=== PATIENT | female | born 1980 | race Caucasian/White ===

== ENCOUNTER 2024-07-24 12:01 | Outpatient (CLI) | payer OTHER, SELFPAY ==
--- OUTSIDE RECORDS SUMMARY | 2024-07-24 12:06 | XMS_ITS | Clinical Summary ---
Author Organization [facility] Address [address] [place] [address] Care Team Providers Care Soot Blower Name Role Phone Mihir Maryellen Robyn BE Primary Care Provider + Allergies No known active allergies Medications vitamin [id number] acid 0.5-1 mg tablet Take 1 tablet by mouth daily 90 tablet 3 06/18/2022 Active cholecalciferol (VITAMIN D-3) 2000 unit capsule 1 capsule (2,000 Units total) Active busPIRone (BUSPAR) 10 mg tabletIndicatio ns:Generalized Anxiety Disorder Take 1 tablet (10 mg total) by mouth 2 (two) times a day 60 tablet 11 08/05/2023 08/04/19 25 Active topiramate (TOPAMAX) 50 mg tablet Take 1 tablet (50 mg total) by mouth 2 (two) times a day 180 tablet 4 08/14/2023 08/14/19 25 Active lisdexamfetamin e (VYVANSE) 30 mg capsule Take 1 capsule (30 mg total) by mouth every morning 30 capsule 08/14/2023 Active SUMAtriptan (IMITREX) 100 mg tablet Take 1 tablet (100 mg total) by mouth once as needed for migraine for up to 1 dose 9 tablet 11/26/2023 Active Active Problems Problem Noted Date Diagnosed Date Vitamin D deficiency 04/22/2023 Assessment & Plan (07/30/2023 2:53 PM DEVELOPER PROVER UPHOLSTERING): Repeat vit d Assessment & Plan (04/22/2023 2:23 PM DEVELOPER PROVER UPHOLSTERING): Vit d deficiency noted Repeat vit d labs Vitamin B12 deficiency 04/22/2023 Assessment & Plan (07/30/2023 2:53 PM DEVELOPER PROVER UPHOLSTERING): Repeat vit b12 Assessment & Plan (04/22/2023 2:23 PM DEVELOPER PROVER UPHOLSTERING): Repeat vit b12 labs Class 2 obesity due to exces s calories without serious comorbidity with body mass index (BMI) of 35.0 to 35.9 in adult 04/22/2023 Assessment & Plan (07/30/2023 2:53 PM DEVELOPER PROVER UPHOLSTERING): BMI Follow-up includes: nutrition counseling. Assessment & Plan (04/22/2023 2:23 PM DEVELOPER PROVER UPHOLSTERING): BMI Follow-up includes: nutrition counseling. Nutritional counseling 08/15/2022 Assessment & Plan (04/22/2023 2:23 PM DEVELOPER PROVER UPHOLSTERING): Continue adipex Assessment & Plan (12/18/2022 6:11 PM CDT): Nutritional counseling performed. Continue on Adipex and started on Topamax and instructed on side effects related to the medication. Follow-up in 1 month Assessment & Plan (08/15/2022 4:15 PM DEVELOPER PROVER UPHOLSTERING): Nutrition counseling performed. Continue Adipex. Doing very well with medication and denies side effects related to the medication. Will continue Adipex for at least 4 months and will follow up in 4 months with weights Anxiety 06/13/2022 Assessment & Plan (07/30/2023 2:53 PM DEVELOPER PROVER UPHOLSTERING): Improvement noted with buspar Assessment & Plan (04/22/2023 2:23 PM DEVELOPER PROVER UPHOLSTERING): Improvement with buspar; continue buspar Assessment & Plan (07/18/2022 10:48 AM DEVELOPER PROVER UPHOLSTERING): Continue buspar Assessment & Plan (06/13/2022 3:16 PM DEVELOPER PROVER UPHOLSTERING): Started on BuSpar and instructed on side effects related to the medication, continue BuSpar 3 times a day and will follow up in 1 month Moderate episode of recurrent major depressive d isorder 06/13/2022 Assessment & Plan (07/18/2022 10:49 AM DEVELOPER PROVER UPHOLSTERING): Started adipex for weight control; instructed on SIDE EFFECT of medication. BMI Follow-up includes: nutrition counseling. Assessment & Plan (06/13/2022 3:16 PM DEVELOPER PROVER UPHOLSTERING): Started on Effexor and instructed on side effects related to the medication Migraine 04/27/2022 Assessment & Plan (07/30/2023 2:53 PM DEVELOPER PROVER UPHOLSTERING): Continue topamax and imitrex prn Assessment & Plan (12/18/2022 6:11 PM CDT): Started topamax which may also aid with migraines Started initially for use with Adipex to aid with weight loss but it also may aid with migraine prevention. Patient currently is having migraines about 1-2 a month. Assessment & Plan (07/18/2022 10:48 AM DEVELOPER PROVER UPHOLSTERING): Continue imitrex prn Assessment & Plan (06/13/2022 3:15 PM DEVELOPER PROVER UPHOLSTERING): Continue imitrex prn Resolved Problems Problem Noted Date Diagnosed Date Resolved Date Class 2 drug-induced obesity without serious comorbidity with body mass index (BMI) of 38.0 to 38.9 in adult 12/18/2022 04/19/2023 Assessment & Plan (12/18/2022 6:11 PM CDT): BMI Follow-up includes: nutrition counseling. Tongue discoloration 06/13/2022 023 Assessment & Plan (06/13/2022 3:16 PM DEVELOPER PROVER UPHOLSTERING): B12 ordered Morbid obesity with BMI of 40.0-44.9, adult 04/27/2022 12/18/2022 Assessment & Plan (08/15/2022 4:14 PM DEVELOPER PROVER UPHOLSTERING): BMI Follow-up includes: nutrition counseling. Assessment & Plan (06/13/2022 3:16 PM DEVELOPER PROVER UPHOLSTERING): BMI Follow-up includes: nutrition counseling. Abnormal uterine bleeding (AUB) 10/03/2021 09/19/2022 IUD check up 10/03/2021 12/05/2021 Immunizations Name Administration Dates Next Due Influenza, Quadrivalent, Laisha l Culture-based MDCK, Preservative Free, Antibiotic Free, Intramuscular 04/18/2019 Influenza, Unspecified 03/13/2023,2021,03/10/2021,03/10 Emmy (J&J) SARS-CoV-2 Vaccination 05/03/2021, 09/24/2020,08/27/2020 Surgical History Surgery Date Site/Laterality Comments BUNIONECTOMY NASAL SINUS SURGERY HYSTERECTOMY Medical History Medical History Date Comments Migraine with aura Depression 06/1997 Menstrual problem 06/1996 - severe pain/nausea Anxiety Family History Medical History Relation Name Comments Ovarian cancer Father's Sister 1 Cancer Father's Sister 2 Natalia Cancer Maternal Grandmother Juliet Depression Maternal Grandmother Juliet Diabetes Maternal Grandmother Juliet Uterine cancer Maternal Grandmother Juliet Breast cancer Mother Brenda Cancer Mother Brenda Heart disease Mother Brenda Miscarriages / Stillbirths Mother Brenda Alcohol abuse Paternal Grandfather Marliss Cancer Paternal Grandfather Marliss Cancer Paternal Grandmother Zaria Miscarriages / Stillbirths Sister Summer Colon cancer Neg Hx Deep vein thrombosis Neg Hx Thrombophilia Neg Hx Relation Name Status Comments Father's Sister 1 Father's Sister 2 Natalia Maternal Grandmother Juliet Mother Brenda Paternal Grandfather Marliss Paternal Grandmother Zaria Sister Summer Social History Tobacco Use Types Packs/Day Years Used Date Smoking Tobacco: Never Smokeless Tobacco: Never Tobacco Cessation:Counseling Given: Not Answered Alcohol Use Standard Drinks/Week Comments Yes 0 (1 standard drink = 0.6 oz pur e alcohol) AUDIT-C Answer Date Recorded Q1: How often do you have a drink containing alc ohol? 2-3 times a week 07/30/2023 Q2: How many drinks containi ng alcohol do you have on a typical day when you are drinking? 1 or 2 07/30/2023 Q3: How often do you have si x or more drinks on one occasion? Never 07/30/2023 PHQ-2 Answer Date Recorded PHQ-2 Total Score (If total score is 3 or more points, staff should administer the PHQ-9) 0 07/30/2023 Comments No Sex and Gender Information Value Date Recorded Sex Assigned at Not on file Legal Sex Female 10:35 AM DEVELOPER PROVER UPHOLSTERING Gender Identity Female 05/14/2020 9:26 AM DEVELOPER PROVER UPHOLSTERING Sexual Orientation Straight 05/14/2020 9: 26 AM DEVELOPER PROVER UPHOLSTERING Obstetrics History Para Term AB IAB SAB Ectopic Multiple Livin g Live Births 0 0 0 0 0 0 0 0 0 0 0 Last Filed Vital Signs Vital Sign Reading Time Taken Comments Blood Pressure 115/88 07/30/2023 9:23 AM DEVELOPER PROVER UPHOLSTERING Pulse 81 07/30/2023 9:23 AM DEVELOPER PROVER UPHOLSTERING Temperature 37.4 C (99.3 F) 05/08/2022 9:00 AM DEVELOPER PROVER UPHOLSTERING Respiratory Rate 16 07/16/2022 1:07 PM DEVELOPER PROVER UPHOLSTERING Oxygen Saturation 97% 07/30/2023 9:23 AM DEVELOPER PROVER UPHOLSTERING Inhaled Oxygen Concentration - - Weight 98 kg (216 lb) 07/30/2023 9:23 AM DEVELOPER PROVER UPHOLSTERING Height 167.6 cm (5' 6 ) 07/30/2023 9:23 AM DEVELOPER PROVER UPHOLSTERING Body Mass Index 34.86 07/30/2023 9:23 AM DEVELOPER PROVER UPHOLSTERING Plan of Treatment Health Maintenance Due Date Last Done Comments Hepatitis C Screening 1980 DTaP/Tdap/Td Vaccine (1 - Tdap) 1993 Varicella Vaccines (1 of 2 - 13+ 2-dose series) 01/01/1996 Hepatitis B Screening 2000 Regular Well Visit/Exam 18-64 09/20/2023 09/19/2022, 05/15/2021, 05/17/2020 Covid-19 Vaccine ( season) 2024 03/01/2023, 05/28/2022, 05/03/2021, Additional history exists Depression Screening 07/30/2024 07/30/2023, 06/13/2022, 06/13/2022 Breast Cancer Screening-Mammogram 08/15/2024 08/16/2023 Cervical Cancer Screening Discontinued 05/17/2020 Influenza Vaccine Completed 03/20/2024, , 03/14/2022, Additional history exists HPV Vaccines Aged Out No longer eligi ble based on patient's age to complete this topic Pneumococcal vaccine <65 Aged Out No longer eligible based on patient's age to complete this topic Procedures Procedure Name Priority Date/Time Associated Diagnosis Comments SCREENING MAMMOGRAM BILATERAL W BRENTON Schedule Routine, Read Routine (OP Routine) 08/16/2023 7:33 AM DEVELOPER PROVER UPHOLSTERING Screening mammogram, encounter for PAP WITH REFLEX TO HIGH RISK HPV Routine 05/17/2020 10:35 AM DEVELOPER PROVER UPHOLSTERING from Last 3 Months or Most Recently Relevant to Health Maintenance Results * (ABNORMAL) Screening Mammogram Bilateral W Brent[place] (08/16/2023 7:33 AM DEVELOPER PROVER UPHOLSTERING) Anatomical Region Laterality Modality Breast Bilateral Mammography 08/19/2023 1:33 PM CDT Impressions 08/19/2023 1:33 PM CDT The right breast asymmetry is indeterminate. FINAL ASSESSMENT: BI-RADS Category 0: Incomplete - Need Additional Imaging Evaluation. RECOMMENDATION: Findings in the right breast require additional evaluation. Diagnostic mammogram and possible ultrasound images of the right breast are recommended at this time. Electronically signed by: Mitali Devries M.D. Narrative 08/19/2023 1:33 PM CDT EXAMINATION: BILATERAL SCREENING MAMMOGRAM COMPARISON: This is the patient's baseline mammogram. TECHNIQUE: Full-field 2D and digital breast tomosynthesis (DBT) images were obtained. CAD was utilized. BREAST PARENCHYMAL COMPOSITION: The breasts are heterogenously dense, which may obscure small masses. FINDINGS: There is an asymmetry in the lateral right breast located 7 cm from the nipple. There is no suspicious mass, calcification, or distortion in the left breast. us Self Screening Mammogram IMG MAMMO PROCEDURES Fi nal Result * Pap with reflex to High Risk HPV (05/17/2020 10:35 AM DEVELOPER PROVER UPHOLSTERING) 05/17/2020 10:3 5 AM DEVELOPER PROVER UPHOLSTERING 05/18/2020 10:35 AM DEVELOPER PROVER UPHOLSTERING Narrative 05/20/2020 12:48 PM DEVELOPER PROVER UPHOLSTERING [facility] Department of Pathology [address] [place] [address] Final Report with Addendum Patient Name: MITALI AMAYA Address: [address] [place] [address] Gender: F : 1980 (Age: 39) Service: Laboratory Location: Lab [facility] #: [id number] Patient Type: Ref Lab Taken: 05/17/2020 Received: 05/18/2020 Accessioned:: 05/19/2020 Reported: 05/20/2020 Physician(s): Caryn Espinal M.D. Diagnosis: Source of Specimen: Imaged Thinprep Pap Test plus HPV - Glass Enamel Mixer Cytologic Material Specimen Adequacy: - Satisfactory for evaluation; endocervical/transformation zone component present General Category: - Negative for intraepithelial lesion or malignancy JUAN Arnold(ASCP) Report Electronically Reviewed and Signed Out By JUAN Arnold(ASCP) 05/20/2020 12:48:54 Addenda: HPV Test Interpretation NEGATIVE for types 16, 18, 31, 33, 35, 39, 45, 51, 52, 56, 58, 59, 66 and 68. Test performed utilizing Gen-Probe Aptima assay. JUAN Whiteside(ASCP) Report Electronically Reviewed and Signed Out By JUAN Whiteside(ASCP) 05/19/2020 16:13:48 Specimen(s) Received: A: Imaged Thinprep Pap Test plus HPV - Glass Enamel Mixer Cytologic Material Clinical History: Contraceptive History: IUD The Pap test is a screening test used to aid in the detection of cervical cancer and its precursors. It should not be the sole means by which malignant and premalignant lesions are diagnosed. Both false negative and false positive results may occur. It also has poor sensitivity for the detection of endometrial lesions and should not be used to evaluate suspected endometrial abnormalities. For these reasons it is most important to obtain Pap tests at regular intervals. The performance characteristics of some immunohistochemical stains, fluorescence in-situ hybridization tests and immunophenotyping by flow cytometry cited in this report (if any) were determined by the Surgical Pathology Department at [facility] as part of an ongoing chemistry quality control technician program and in compliance with federally mandated regulations drawn from the Clinical Laboratory Improvement Act of 1988 (CLIA '88). Some of these tests rely on the use of analyte specific reagents and are subject to specific labeling requirements by the US Food and Drug Administration. Such diagnostic tests may only be performed in a facility that is certified by the Department of Health and Human Services as a high complexity laboratory under CLIA '88. The FDA has determined that such clearance or approval is not necessary. This test is used for clinical purposes. It should not be regarded as investigational or for research. Nevertheless, federal rules concerning the medical use of analyte specific reagents require that the following disclaimer be attached to the report: This test was developed and its performance characteristics determined by the Surgical Pathology Department [facility]. It has not been cleared or approved by the U. S. Food and Drug Administration. Brenda Lantigua MD PhD LAB CYTOLOGY ORDERABLE S Final Result from Last 3 Months or Most Recently Relevant to Health Maintenance Insurance [facility] Member Subscriber Plan / Payer (Ef fective 2023-Present) Name:Mitali Figueroa Relation to Subscriber:Self Name:Mitali Figueroa Payer ID:[id number] (NAIC) Type:[facility] H[facility]/PPO Address: [place] [phone] Advance Directives For more information, please contact: [phone] * Full Code (Latest Code Status on File) Date Activated Date Inactivated Comments 05/08/2022 11:51 AM 05/08/2022 6:40 PM Care Teams Soot Blower Relationship Specialty Start Date End Date Maryellen Ash NP [address] [place] [address] PCP - General Family Medicine 06/13/22
--- OUTSIDE RECORDS SUMMARY | 2024-07-24 12:06 | XMS_ITS | Referral Summary ---
Author Organization [facility] Address [address] [place] [address] Care Team Providers Care Russian Rubber Name Role Phone Mihir Maryellen Robyn BE Primary Care Provider + Allergies No known active allergies Medications vitamin T95-[id number] acid 0.5-1 mg tablet Take 1 tablet [...] 04/22/2023 Assessment & Plan (07/30/2023 2:53 PM ULTRASOUND TECHNICIAN): Repeat vit d Assessment & Plan (04/22/2023 2:23 PM ULTRASOUND TECHNICIAN): Vit d deficiency noted Repeat vit d labs Vitamin B12 deficiency 04/22/2023 Assessment & Plan (07/30/2023 2:53 PM ULTRASOUND TECHNICIAN): Repeat vit b12 Assessment & Plan (04/22/2023 2:23 PM ULTRASOUND TECHNICIAN): Repeat vit b12 labs Class 2 obesity due to exces s calories without serious comorbidity with body mass index (BMI) of 35.0 to 35.9 in adult 04/22/2023 Assessment & Plan (07/30/2023 2:53 PM ULTRASOUND TECHNICIAN): BMI Follow-up includes: nutrition counseling. Assessment & Plan (04/22/2023 2:23 PM ULTRASOUND TECHNICIAN): BMI Follow-up includes: nutrition counseling. Nutritional counseling 08/15/2022 Assessment & Plan (04/22/2023 2:23 PM ULTRASOUND TECHNICIAN): Continue adipex Assessment & Plan (12/18/2022 6:11 PM CDT): Nutritional counseling performed. Continue on Adipex and started on Topamax and instructed on side effects related to the medication. Follow-up in 1 month Assessment & Plan (08/15/2022 4:15 PM ULTRASOUND TECHNICIAN): Nutrition counseling performed. Continue Adipex. Doing very well with medication and denies side effects related to the medication. Will continue Adipex for at least 4 months and will follow up in 4 months with weights Anxiety 06/13/2022 Assessment & Plan (07/30/2023 2:53 PM ULTRASOUND TECHNICIAN): Improvement noted with buspar Assessment & Plan (04/22/2023 2:23 PM ULTRASOUND TECHNICIAN): Improvement with buspar; continue buspar Assessment & Plan (07/18/2022 10:48 AM ULTRASOUND TECHNICIAN): Continue buspar Assessment & Plan (06/13/2022 3:16 PM ULTRASOUND TECHNICIAN): Started on BuSpar and instructed on side effects related to the medication, continue BuSpar 3 times a day and will follow up in 1 month Moderate episode of recurrent major depressive d isorder 06/13/2022 Assessment & Plan (07/18/2022 10:49 AM ULTRASOUND TECHNICIAN): Started adipex for weight control; instructed on SIDE EFFECT of medication. BMI Follow-up includes: nutrition counseling. Assessment & Plan (06/13/2022 3:16 PM ULTRASOUND TECHNICIAN): Started on Effexor and instructed on side effects related to the medication Migraine 04/27/2022 Assessment & Plan (07/30/2023 2:53 PM ULTRASOUND TECHNICIAN): Continue topamax and imitrex prn Assessment & Plan (12/18/2022 6:11 PM CDT): Started topamax which may also aid with migraines Started initially for use with Adipex to aid with weight loss but it also may aid with migraine prevention. Patient currently is having migraines about 1-2 a month. Assessment & Plan (07/18/2022 10:48 AM ULTRASOUND TECHNICIAN): Continue imitrex prn Assessment & Plan (06/13/2022 3:15 PM ULTRASOUND TECHNICIAN): Continue imitrex prn Resolved Problems Problem Noted Date Diagnosed Date Resolved Date Class 2 drug-induced obesity without serious comorbidity with body mass index (BMI) of 38.0 to 38.9 in adult 12/18/2022 04/19/2023 Assessment & Plan (12/18/2022 6:11 PM CDT): BMI Follow-up includes: nutrition counseling. Tongue discoloration 06/13/2022 023 Assessment & Plan (06/13/2022 3:16 PM ULTRASOUND TECHNICIAN): B12 ordered Morbid obesity with BMI of 40.0-44.9, adult 04/27/2022 12/18/2022 Assessment & Plan (08/15/2022 4:14 PM ULTRASOUND TECHNICIAN): BMI Follow-up includes: nutrition counseling. Assessment & Plan (06/13/2022 3:16 PM ULTRASOUND TECHNICIAN): BMI Follow-up includes: nutrition counseling. Abnormal uterine bleeding (AUB) 10/03/2021 09/19/2022 IUD check up 10/03/2021 12/05/2021 Immunizations Name Administration Dates Next Due Influenza, Quadrivalent, Laisha l Culture-based MDCK, Preservative Free, Antibiotic Free, Intramuscular 04/18/2019 Influenza, Unspecified 03/13/2023,2021,03/10/2021,03/10 Emmy (J&J) SARS-CoV-2 Vaccination 05/03/2021, 09/24/2020,08/27/2020 Social History Tobacco Use Types Packs/Day Years [...] on file Legal Sex Female 10:35 AM ULTRASOUND TECHNICIAN Gender Identity Female 05/14/2020 9:26 AM ULTRASOUND TECHNICIAN Sexual Orientation Straight 05/14/2020 9: 26 AM ULTRASOUND TECHNICIAN Last Filed Vital Signs Vital Sign Reading Time Taken Comments Blood Pressure 115/88 07/30/2023 9:23 AM ULTRASOUND TECHNICIAN Pulse 81 07/30/2023 9:23 AM ULTRASOUND TECHNICIAN Temperature 37.4 C (99.3 F) 05/08/2022 9:00 AM ULTRASOUND TECHNICIAN Respiratory Rate 16 07/16/2022 1:07 PM ULTRASOUND TECHNICIAN Oxygen Saturation 97% 07/30/2023 9:23 AM ULTRASOUND TECHNICIAN Inhaled Oxygen Concentration - - Weight 98 kg (216 lb) 07/30/2023 9:23 AM ULTRASOUND TECHNICIAN Height 167.6 cm (5' 6 ) 07/30/2023 9:23 AM ULTRASOUND TECHNICIAN Body Mass Index 34.86 07/30/2023 9:23 AM ULTRASOUND TECHNICIAN Plan of Treatment Not on file Procedures Procedure Name Priority Date/Time Associated Diagnosis Comments SCREENING MAMMOGRAM BILATERAL W BRENTON Schedule Routine, Read Routine (OP Routine) 08/16/2023 7:33 AM ULTRASOUND TECHNICIAN Screening mammogram, encounter for PAP WITH REFLEX TO HIGH RISK HPV Routine 05/17/2020 10:35 AM ULTRASOUND TECHNICIAN from Last 3 Months or Most Recently Relevant to Health Maintenance Results * (ABNORMAL) Screening Mammogram Bilateral W [place] (08/16/2023 7:33 AM ULTRASOUND TECHNICIAN) Anatomical Region Laterality Modality Breast Bilateral Mammography 08/19/2023 1:33 PM CDT Impressions 08/19/2023 1:33 PM CDT The right breast asymmetry is indeterminate. FINAL ASSESSMENT: BI-RADS Category 0: Incomplete - Need Additional Imaging Evaluation. RECOMMENDATION: Findings in the right breast require additional evaluation. Diagnostic mammogram and possible ultrasound images of the right breast are recommended at this time. Electronically signed by: Gretchen Devries M.D. Narrative 08/19/2023 1:33 PM CDT [...] to High Risk HPV (05/17/2020 10:35 AM ULTRASOUND TECHNICIAN) 05/17/2020 10:3 5 AM ULTRASOUND TECHNICIAN 05/18/2020 10:35 AM ULTRASOUND TECHNICIAN Narrative 05/20/2020 12:48 PM ULTRASOUND TECHNICIAN [facility] Department of Pathology [address] [place] [address] Final Report with Addendum Patient Name: GRETCHEN AMAYA Address: [address] [place] [address] Gender: F : 1980 (Age: 39) Service: Laboratory Location: Lab [facility] #: [id number] Patient Type: Ref Lab Taken: 05/17/2020 Received: 05/18/2020 Accessioned:: 05/19/2020 Reported: 05/20/2020 Physician(s): Caryn Espinal M.D. Diagnosis: Source of Specimen: Imaged Thinprep Pap Test plus HPV - Bag Maker Cytologic Material Specimen Adequacy: - Satisfactory for [...] Imaged Thinprep Pap Test plus HPV - Bag Maker Cytologic Material Clinical History: Contraceptive History: IUD [...] determined by the Surgical Pathology Department at [facility] as part of an ongoing quality control tester program and in compliance with federally mandated [...] characteristics determined by the Surgical Pathology Department [facility]. It has not been cleared or approved by the U. S. Food and Drug Administration. Brenda Lantigua MD PhD LAB CYTOLOGY ORDERABLE S Final Result from Last 3 Months or Most Recently Relevant to Health Maintenance Insurance [facility]PP[facility] Address: [facility] [id number] [place] [address] [place] [address] [facility] H[facility]/PPO Address: [address] [phone] [place] [address] [facility]/PPO Address: [place] [phone] Advance Directives For more information, please contact: [phone] * Full Code (Latest Code Status on File) Date Activated Date Inactivated Comments 05/08/2022 11:51 AM 05/08/2022 6:40 PM Care Teams [employer] Relationship Specialty Start Date End Date Maryellen Ash NP [address] [place] [address] PCP - General Family Medicine 06/13/22
[2024-07-24 12:27] LABS: Basophils Percent Auto 0.3 % (0.2-1.2); Eosinophils Absolute Auto 0.2 K/mm3 (0-0.3); Eosinophils Percent Auto 3.3 % (0-4.4); Hematocrit 40.4 % (37.0-47.0); Hemoglobin 13.5 g/dL (12.0-15.0); Immature Granulocyte Absolute 0.03 K/mm3 (0.00-0.031); Immature Granulocyte Percent A 0.4 % (0-0.5); Lymphocytes Absolute Auto 1.82 K/mm3 (0.9-3.2); Mean Corpuscular HGB Conc 33.4 g/dl (32-36); Mean Corpuscular Hemoglobin 30.5 pg (26-34); Mean Corpuscular Volume 91.2 fl (80-100); Monocytes Absolute Auto 0.7 K/mm3 (0.1-0.6); Monocytes Percent Auto 10.1 % (2.6-8.5); Neutrophils Percent Auto 58.9 % (45.5-73.1); Platelet Count Result 376 k/mm3 (150-375); Red Blood Count 4.43 M/mm3 (4.2-5.4); Red Cell Distribution Width 11.9 % (11.5-14.5); White Blood Count 6.7 K/mm3 (4.5-10.0)
[2024-07-24 12:37] LABS: Iron 90 ug/dL (37-170)
[2024-07-24 12:39] LABS: Alanine Aminotransferase 25 U/L (6-35); Albumin Level 4.5 g/dL (3.5-5.1); Alkaline Phosphatase 50 U/L (38-126); Anion Gap 8 mmol/L (4-12); Aspartate Amino Transferase 29 U/L (14-36); Blood Urea Nitrogen 9 mg/dL (7-17); Calcium 9.2 mg/dL (8.4-10.2); Carbon Dioxide 27 mmol/L (22-30); Chloride 103 mmol/L (98-107); Cholesterol 195 mg/dL (0-200); Estimated Glomerular Filt Rate > 60; Glucose 94 mg/dL (65-110); HDL Direct 58 mg/dL; Potassium 4.4 mmol/L (3.4-5.0); Sodium 138 mmol/L (137-145); Triglycerides 84 mg/dL (<150)
[2024-07-24 12:46] LABS: Percent Iron Saturation 30 % (20-50)
[2024-07-24 12:50] LABS: LDL Cholesterol Direct 128 mg/dL
[2024-07-24 12:58] LABS: Free T4 Free Thyroxine 1.04 ng/dL (0.78-2.19); Vitamin D 25 Hydroxy 23.7 ng/mL
[2024-07-24 13:07] LABS: Hemoglobin A1C 5.3 % (<5.7)
[2024-07-25 15:43] LABS: Amphetamines NEGATIVE ng/mL (<500); Barbiturates NEGATIVE ng/mL (<300); Benzodiazepines NEGATIVE ng/mL (<100); Cocaine Metabolite NEGATIVE ng/mL (<150); Marijuana Metabolite NEGATIVE ng/mL (<20); Methadone Metabolite NEGATIVE ng/mL (<100); Opiates NEGATIVE ng/mL (<100); Oxidant NEGATIVE mcg/mL (<200); PCP NEGATIVE ng/mL (<25)
== END 2024-07-24 12:02 | disposition home or self-care (01) ==
LOC: ANHLAB 12:03
PROVIDERS: PCP Internal Medicine; Visit Provider Clinical Nurse Specialist
DX: Z13.220 Encounter for screening for lipoid disorders (principal); Z13.228 Encounter for screening for other metabolic disorders; F41.9 Anxiety disorder, unspecified; E53.8 Deficiency of other specified B group vitamins; E55.9 Vitamin D deficiency, unspecified; R73.01 Impaired fasting glucose; R74.8 Abnormal levels of other serum enzymes; Z79.899 Other long term (current) drug therapy
CPT/HCPCS: 36415; 80053; 80061; 80307; 82306; 82607; 82728; 83036; 83540; 83550; 84439; 84443; 85025

== ENCOUNTER 2024-12-02 14:53 | Outpatient (CLI) | payer OTHER, SELFPAY ==
--- NOTE | ~2024-12-02 | MM_ITS ---
EXAMINATION: MM screening john BI w cirilo HISTORY: Screening mammogram, family history of breast cancer in her mother. TECHNIQUE: Craniocaudal and mediolateral oblique 3-D tomosynthesis images were obtained and synthetic 2-D images were generated. CAD analysis was submitted and interpreted. COMPARISON: No prior mammogram is available for comparison at this institution. BREAST PARENCHYMAL COMPOSITION:Not Dense. There are scattered areas of fibroglandular density. FINDINGS: No suspicious mass, calcification, or architectural distortion are identified in either do ast to suggest malignancy. There has been no suspicious interval change. IMPRESSION: No mammographic evidence of malignancy. Recommend routine screening mammography in one year. BI-RADS Category 1: Negative Reviewed, dictated and finalized at location .
== END 2024-12-02 14:54 | disposition home or self-care (01) ==
LOC: CHSIMG 14:55
PROVIDERS: PCP Internal Medicine; Visit Provider Clinical Nurse Specialist
DX: Z12.31 Encounter for screening mammogram for malignant neoplasm of breast (principal)
CPT/HCPCS: 77063; 77067

== ENCOUNTER 2025-02-05 10:19 | Outpatient (CLI) | payer OTHER, SELFPAY ==
--- NOTE | ~2025-02-05 | XR_ITS ---
EXAM/ PROCEDURE: XR hip RT min 2V - 02/05/2025 10:29 CDT HISTORY: 44 years old Female with S79.919A - Unspecified injury of unspecified hip, initial... COMPARISON: None available TECHNIQUE: Three view(s) FINDINGS/ IMPRESSION: There are no fractures or dislocations.Joint spaces are within normal limits. Reviewed, dictated and finalized at location N.
== END 2025-02-05 10:20 | disposition home or self-care (01) ==
PROVIDERS: PCP Internal Medicine; Visit Provider Clinical Nurse Specialist
DX: S79.911A Unspecified injury of right hip, initial encounter (principal); X58.XXXA Exposure to other specified factors, initial encounter
CPT/HCPCS: 73502

== ENCOUNTER 2025-05-19 14:45 | Outpatient (RCR) | payer OTHER, SELFPAY ==
--- NOTE | 2025-02-25 17:21 | PTOPEVAL1 ---
Assessment and note entered by Bri Artis, PT Evaluation Information Assessment Status Evaluation Diagnosis M25.531 ICD-10 Condition Codes (PT) Radiculopathy, sacral and sacrococcygeal region M54.18,Pain in right hip M25.551,Abnormalities of gait and mobility R26.9,Weakness R53.1 Subjective Information Pt reports that 5 weeks ago, she was planting on a raised bed and came back in the house, she felt intense pain in the back and side of R hip to the point that she wasn't able to sleep due to pain when changing position. It persisted more than 2 weeks, went to PCP and was prescribed steroids which help lower the pain level. Pain to the area is aggravated by prolonged sitting, driving for more than 2 hrs, turning in bed, going up stairs. 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 pain with Sitting > standing/walking . She uses ice, Ibuprofen for relief. Reported Pain Level Pain Score 2: Self Report Assessment PT Clinical Summary Pt presents to therapy with c/o persisting pain to lower back and R hip area described as dull ache. Denies pins and needles, sharp shooting pain. She demos significant limitation in ROM, lizet in hip flexion, rotation and trunk lateral flexion to the R. She also presents with a mild trendelenburg gait with R pelvic drop, R hip positioned in IR during swing phase. She has a h/o horse riding accident where the horse landed on top of her BLEs , past and recent X-Rays negative for fractures. She will benefit from skilled PT to reduce pain, improve body mechanics and work ergonomics, improve ROM and strength and improve gait and ambulation tolerance on various surfaces. Plan of Care Interventions Check Out for Orthotic/Prosthetic,Electrical Stimulation,Gait Training,Hot Pack/Cold Pack, Manual Therapy,Neuro Re-education,Patient/ Caregiver Education,Therapeutic Activities, Therapeutic Exercise,Ultrasound,Other Other Interventions Taping, Dry Needling PT Services Indicated Yes Treatment Frequency and 2x/wk x 8 visits Duration These treatments will address the objective and functional deficits as defined above. The patient will be advanced safely and appropriately in order for the patient to progress towards his/her prior level of function. Additional exercises will be introduced and as well as a comprehensive home exercise program upon discharge, if needed, ?to ensure carryover of functional gains achieved in the clinic. This treatment plan has been reviewed and agreement upon by the patient.
--- NOTE | 2025-04-06 14:22 | OPREHPOC ---
Outpatient Therapy Plan of Care This is a Multidisciplinary Plan of Care that may contain components documented by all disciplines (PT, OT, and ST.) PT Problem 1 PT Problem #1 Knowledge Deficit PT Goal 1 Goal / Goal Update Pt. will demo good understanding of diagnosis and prognosis, HEPs. Target Visit 6 PT Problem 2 PT Problem #2 Pain PT Goal 1 Goal / Goal Update Pt will report?improved pain of 1-2/10 at worst when performing squats, sitting for long periods of time, turning in bed. Target Visit 8 PT Goal 1 Goal / Goal Update Pt will demo increase in lumbar and hip active ROM to WNL without discomfort in order to allow improved functional mobility and safety. Target Visit 8 PT Problem 4 PT Problem #4 Impaired Gait PT Goal 1 Goal / Goal Update 1. Pt will demo normalized gait pattern with equal weight shift and stride length and postural stability on various surfaces and stairs. 2. Pt will perform SLS for 10 seconds or more each LE without compensatory lateral lean. Target Visit 8
--- NOTE | 2025-04-06 14:46 | PCPTNOTE ---
NC/NS reason unknown. AKS
--- NOTE | 2025-04-26 16:23 | OPREHPOC ---
Outpatient Therapy Plan of Care This is a Multidisciplinary Plan of Care that may contain components documented by all disciplines (PT, OT, and ST.) PT Problem 1 PT Problem #1 Knowledge Deficit PT Goal 1 Goal / Goal Update Pt. will demo good understanding of diagnosis and prognosis, HEPs. update 04/21/2025: Pt will perform hip mobility exercises, hip flexor stretches and lumbosacral stability exercises with minimal cues. Target Visit 6 Progress Partially Met PT Problem 2 PT Problem #2 Pain PT Goal 1 Goal / Goal Update Pt will report?improved pain of 1-2/10 at worst when performing squats, sitting for long periods of time, turning in bed. update 04/21/2025: Pt. continue to c/o 5/10 pain at worst, difficulty with squat mechanics, now feeling on both sides, initially feeling tightness and discomfort to R side only. Target Visit 8 Progress Partially Met PT Goal 1 Goal / Goal Update Pt will demo increase in lumbar and hip active ROM to WNL without discomfort in order to allow improved functional mobility and safety. - met Target Visit 8 Progress Met PT Problem 4 PT Problem #4 Impaired Gait PT Goal 1 Goal / Goal Update 1. Pt will demo normalized gait pattern with equal weight shift and stride length and postural stability on various surfaces and stairs. 2. Pt will perform SLS for 10 seconds or more each LE without compensatory lateral lean. update 04/21: 1. cont with this goal on various surfaces, ramps and stairs 2. met Target Visit 8 Progress Partially Met
--- NOTE | 2025-04-26 16:25 | PTOPPROG ---
Assessment and note entered by Bri Artis, PT Re-Evaluation Information Assessment Status Progress Diagnosis M25.531 ICD-10 Condition Codes (PT) Radiculopathy, sacral and sacrococcygeal region M54.18,Pain in right hip M25.551,Abnormalities of gait and mobility R26.9,Weakness R53.1 Subjective Information Pt reports 90% better since starting therapy. She still experience pain and tightness to her R upper buttocks area and few days ago she felt it in the L side as well. Assessment PT Clinical Summary Pt received 10 sessions of therapy and demos good progress, with gains in flexibility and strength. However, she continue to demo increased muscle tone to sacral and upper gluteal area, and currently feeling it bilaterally versus only on the R hip at al. She is agreeable to receiving dry needling therapy to address this chronic muscle tightness which continuously contribute to deficits in posture, gait mechanics, balance and safety with performing overall functional mobility and tolerance to prolonged sitting, standing and ambulation. She will also benefit from continued therapy to continue to work on LTGs. Plan of Care Interventions Check Out for Orthotic/Prosthetic,Electrical Stimulation,Gait Training,Hot Pack/Cold Pack, Manual Therapy,Neuro Re-education,Patient/ Caregiver Education,Therapeutic Activities, Therapeutic Exercise,Ultrasound,Other Other Interventions Taping, Dry Needling PT Services Indicated Yes Treatment Frequency and 2x/wk x 6 visits Duration These treatments will address the objective and functional deficits as defined above. The patient will be advanced safely and appropriately in order for the patient to progress towards his/her prior level of function. Additional exercises will be introduced and as well as a comprehensive home exercise program upon discharge, if needed, ?to ensure carryover of functional gains achieved in the clinic. This treatment plan has been reviewed and agreement upon by the patient.
--- NOTE | 2025-05-10 10:11 | PCPTNOTE ---
Called and cancelled d/t schedule conflict per front office. AKS
== END 2025-05-26 23:59 | disposition home or self-care (01) ==
LOC: ANHPT 14:45
PROVIDERS: PCP Internal Medicine; Visit Provider Clinical Nurse Specialist
DX: S79.911D Unspecified injury of right hip, subsequent encounter (principal); M25.511 Pain in right shoulder
CPT/HCPCS: 97014; 97110; 97140; 97161; 97530; G0283